=== PATIENT | male | born 1965 | race Caucasian/White ===

== ENCOUNTER 2024-04-16 09:04 | Emergency (ER) | payer OTHER, SELFPAY ==
[2024-04-16] VITALS (7 sets, daily range): BP systolic 156–187; BP diastolic 101–112; PULSE 72–96; RESP 16; TEMP 36.6; O2SAT 97–99; BMI 25.7
--- NOTE | 2024-04-16 09:15 | ED.CHESTPAIN ---
HPI - Chest Pain General Time Seen by Provider: 09:16 Date Seen: 04/16/24 Chief Complaint: Chest Pain Stated Complaint: Chest pain Time Seen by Provider: 04/16/24 09:15 Source: patient and RN notes reviewed Mode of arrival: ambulatory Limitations: no limitations History of Present Illness HPI narrative: This 58-year-old male is presenting to the ER with chest pain and pain into his arms with numbness tingling sensation. He started around 8:00 a.m. with central chest pain, was severe for about 10 minutes, went away and then came back. He did try some Tums, did not changes symptoms. He really was not feeling any associated GI symptoms with this. He feels pain into his upper arms and his arms feel numb and tingly with this. He has a history of untreated hypertension. There is a question of arrhythmia or abnormality on his EKG for which he were Holter before. He is on no chronic medicines. His current pain is about a 3 to 4/10. It is central and substernal, does not radiate into his neck or back. No abdominal pain or GI symptoms. Has never been diagnosed with heart attack before. Reviewed with patient that his EKG obtained on arrival does show some concerning changes for heart attack. Will be talking to Cardiology. He goes to [facility], thus, will talk to [facility]. Patient has never been told that he should not take blood thinners or NSAIDs, no recent surgery. MD complaint: chest pain Prior episodes: No Onset: during rest Related Data Home Medications ?Medication ?Instructions ?Recorded ?Confirmed sildenafil 25 mg tablet PO DAILY PRN 04/16/24 Allergies Allergy/AdvReac Type Severity Reaction Status Date / Time No Known Drug Allergies Allergy Verified 04/16/24 09:09 Review of Systems Status of ROS Reports: 6 or more systems reviewed and unremarkable except as noted in History and below Exam Const Vital Signs, click to edit/add: Vital Signs - 24 hr 04/16/24 09:06 04/16/24 09:21 Temperature 97.8 F Pulse Rate [Pulse Oximeter] 72 Respiratory Rate 16 Blood Pressure [Right Upper Arm] 187/111 H Pulse Oximetry 99 97 Oxygen Delivery Method Room Air 58-year-old male is alert, interactive, no apparent distress. Sclera clear, conjugate gaze, able speak in complete sentences. Neck is supple, no adenopathy, no thyromegaly masses or nodules. Lungs are clear, good air entry, no wheeze or crackles. CV regular rate and rhythm, no murmur, normal S1-S2, no S3-S4. Abdomen is soft, nontender, nondistended, no organomegaly. 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 Skin is warm but feels a little moist. He has no lower extremity edema. Patient was ambulatory into the ED of his own accord. Documenting provider has reviewed patient's vital signs: yes Course Course ED Course: Patient is on appropriate cardiac monitoring, pulse oximetry. Nursing staff is securing IV sources. Will give this patient 325 mg aspirin, have nursing staff try sublingual nitroglycerin. Need to get full complement of labs and talk to Cardiology emergently. Reevaluation(s) Time of Reevaluation #1: 09:45 Reevaluation #1: Brilinta is being brought from pharmacy. The heparin has been started. They are getting his nitroglycerin drip started, current systolic blood pressure 1 70s. Have reviewed with nursing staff that per cardiology we should titrate the systolic blood pressure with nitro to 120-130. Patient's chest pain did go down a bit with the original sublingual nitroglycerin from a 3 to a 1. I have explained to him that he will be going to [facility], going to the cardiac catheterization lab. Time of Reevaluation #2: 10:00 Reevaluation #2: Patient having worsening chest pain. Nursing staff alerted me and went to see him. Repeated an EKG which shows increasing STEMI changes in the anterior leads. Still in sinus rhythm at 83 beats per minute. On the monitor he is throwing an occasional PVC. Nitroglycerin was at 10 mics, increase the drip to 15 and then 20 as blood pressure systolic was 173. Did order 4 mg IV morphine and 4 mg IV Zofran. Flight crew arrived at this time. Consultations Consultation #1: Have spoken with Cardiology from [facility] Dr. Aviles. I was able to text him the EKG image, he concurs that this is an anterior MN. We will proceed with loading dose of Brilinta 180 mg. ACS heparin. He would like nitroglycerin drip started to titrate to a systolic of 120-130. We have already initiated aspirin, patient did get sublingual nitroglycerin ordered but will update nursing staff. Will have staff work on transfer either via ground or air, will use whichever is going to be quicker. Patient is a level 1 cardiac patient, STEMI. Time: 09:22 Vital Signs Vital signs: Initial Vital Signs Temperature 97.8 F 04/16/24 09:06 Temperature Source Temporal Artery Scan 04/16/24 09:06 Pulse Rate 72 04/16/24 09:06 Respiratory Rate 16 04/16/24 09:06 Blood Pressure 187/111 H 04/16/24 09:06 Blood Pressure Mean 136 H 04/16/24 09:06 Blood Pressure Position Sitting 04/16/24 09:06 Pulse Oximetry 99 04/16/24 09:06 Oxygen Delivery Method Room Air 04/16/24 09:06 Vital Signs Temperature 97.8 F 04/16/24 09:06 Pulse Rate 72 04/16/24 09:06 Respiratory Rate 16 04/16/24 09:06 Blood Pressure 187/111 H 04/16/24 09:06 Pulse Oximetry 99 04/16/24 09:06 Oxygen Delivery Method Room Air 04/16/24 09:06 Temperature 97.8 F 04/16/24 09:06 Pulse Rate 72 04/16/24 09:06 Respiratory Rate 16 04/16/24 09:06 Blood Pressure 187/111 H 04/16/24 09:06 Pulse Oximetry 97 04/16/24 09:21 Oxygen Delivery Method Room Air 04/16/24 09:06 Medications Administered Medications: Generic Name Dose Route Start Last Admin Trade Name Freq PRN Reason Stop Dose Admin Heparin Sodium/Dextrose 25,000 unit in 500 mls @ 0 mls/hr 04/16/24 09:30 04/16/24 09:41 Heparin IV 1,000 unit/hr .Q0M YARITZA 20 mls/hr Administration Protocol Per Protocol Nitroglycerin/Dextrose 25,000 mcg in 250 mls @ 3 mls/hr 04/16/24 09:27 04/16/24 09:41 Nitroglycerin/Dextrose IVPB 5 mcg/min .TITRATE PRN 3 mls/hr Administration Protocol 5 MCG/MIN Discontinued Medications Generic Name Dose Route Start Last Admin Trade Name Freq PRN Reason Stop Dose Admin Aspirin 324 mg 04/16/24 09:21 04/16/24 09:24 Aspirin 81 Mg Tab.Chew PO 04/16/24 09:22 324 mg ONCE ONE Administration Heparin Sodium (Porcine) 4,000 unit 04/16/24 09:26 04/16/24 09:40 Heparin 5,000 Unit/0.5 Ml Inj IVP 04/16/24 09:27 4,000 unit ONCE ONE Administration Ticagrelor 180 mg 04/16/24 09:26 04/16/24 09:43 Ticagrelor 90 Mg Tablet PO 04/16/24 09:27 180 mg ONCE ONE Administration MDM - Chest Pain Lab Data Attestation: I reviewed the patient's lab results. Labs: Lab Results 04/16/24 04/16/24 Range/Units 09:19 09:20 WBC 9.80 (4.50-11.00) K/uL RBC 4.67 (4.30-5.90) m/uL Hgb 16.1 (13.5-17.5) gm/dL Hct 47.2 (37.0-53.0) % MCV 101 H (80-100) fL MCH 35 H (26-34) pg MCHC 34 (32-36) gm/dL RDW Coeff of Miriam 13.8 (11.5-15.5) % Plt Count 342 (140-440) K/uL Neut % (Auto) 62.6 (42.0-72.0) % Lymph % (Auto) 24.2 (20-44) % Kimball % (Auto) 10.2 (0.0-11.0) % Eos % (Auto) 2.3 (0.0-7.0) % Baso % (Auto) 0.4 (0.0-3.0) % Neut # (Auto) 6.13 (1.7-7.0) K/uL Lymph # (Auto) 2.37 (0.90-2.90) K/uL Kimball # (Auto) 1.00 H (0.00-0.90) K/UL Eos # (Auto) 0.23 (0.00-0.50) K/uL Baso # (Auto) 0.04 (0.00-0.30) K/uL Abs Immat Gran (auto) 0.03 (0.00-0.30) K/uL Imm/Tot Granulo (auto) 0.3 % Sodium 140 (135-149) mmol/L Potassium 3.8 (3.6-5.1) mmol/L Chloride 107 (96-114) mmol/L Carbon Dioxide 28 (20-32) mmol/L Anion Gap 5 L (7-15) mEq/L BUN 19 (7-30) mg/dL Creatinine 1.0 (0.5-1.5) mg/dL Estimated Creat Clear 92.48 Estimated GFR 87 ml/min Glucose 103 (60-115) mg/dL Calcium 9.8 (8.4-10.6) mg/dL Troponin I 0.24 H* (0.01-0.04) ng/mL POC Troponin I 0.22 H (0.01-0.04) ng/ml Imaging Data Chest x-ray: Attestation: I have reviewed the pertinent imaging results. Radiologist's impression: Patient: DARIANA LAMB Facility:?[facility] Patient ID:?[id number] Site Patient ID:?[id number]. Site :?[id number] Study:?XRay-Chest Portable 1 View-04/16/2024 9:48:46 AM Ordering Physician:?Aubree Perez Final Report: INDICATION: Chest pain. TECHNIQUE: Chest 1 portable view. COMPARISON: None. FINDINGS: No pneumothorax or pleural effusion. Lungs are clear. Cardiac and mediastinal contours are within normal limits. Upper abdomen and osseous structures as imaged show no acute abnormality. IMPRESSION: No evidence of acute cardiopulmonary disease. Dictated by Elan Phillips MD @ 04/16/2024 10:00:49 AM (Electronic Signature) ECG Data Attestation: I personally reviewed and interpreted this ECG as follows: (Sinus rhythm, [address] and T-wave changes concerning for STEMI in anterior distribution.) ECG interpretation date: 04/16/24 ECG interpretation time: 09:16 Critical Care Time Critical Care Time Critical Care Time: Yes Attestation: The patient required my highest level preparedness to intervene emergently and I personally spent this critical care time directly and personally managing the patient. This critical care time included: Obtaining a history; Examining the patient; Pulse oximetry; Ordering and reviewing of studies; Arranging urgent treatment with development of a management plan; Evaluation of patients response to treatment; Frequent reassessment discussions with other providers. This critical care time was performed to assess and manage the high probability of imminent life-threatening deterioration that could result in multiorgan failure. It was exclusive of separate billable procedures and treating other patients and teaching time. Total Critical Care Time in Minutes: 60 Discharge Plan Discharge Clinical Impression: ST elevation myocardial infarction (STEMI) Qualifiers: Involved coronary artery: unspecified coronary artery Qualified Code(s): I21.3 - ST elevation (STEMI) myocardial infarction of unspecified site Patient Disposition: [facility] Discharge Location: [facility]
--- NOTE | 2024-04-16 09:21 | CRLHL7_ITS ---
For Patients: As a result of the Century Cures Act, medical imaging exams and procedure reports are released immediately into your electronic medical record. You may view this report before your referring provider. If you have questions, please contact your health care provider. INDICATION: Chest pain. TECHNIQUE: Chest 1 portable view. COMPARISON: None. FINDINGS: No pneumothorax or pleural effusion. Lungs are clear. Cardiac and mediastinal contours are within normal limits. Upper abdomen and osseous structures as imaged show no acute abnormality. IMPRESSION: No evidence of acute cardiopulmonary disease. Dictated by Elan Phillips MD @ 04/16/2024 10:00:49 AM (Electronically Signed)
[2024-04-16] MEDS: ASPIRIN 81 MG TAB.CHEW 324 MG PO (09:24)
[2024-04-16] MEDS: NITROGLYCERIN 0.4 MG TAB.SUBL SUBLINGUAL (09:25)
[2024-04-16 09:28] LABS: Basophils Absolute Auto 0.04 K/uL (0.00-0.30); Basophils Percent Auto 0.4 % (0.0-3.0); Eosinophils Absolute Auto 0.23 K/uL (0.00-0.50); Eosinophils Percent Auto 2.3 % (0.0-7.0); Hematocrit 47.2 % (37.0-53.0); Hemoglobin* 16.1 gm/dL (13.5-17.5); Immature Granulocytes Abs Auto 0.03 K/uL (0.00-0.30); Immature Granulocytes Pct Auto 0.3 %; Lymphocytes Absolute Auto 2.37 K/uL (0.90-2.90); Lymphocytes Percent Auto 24.2 % (20-44); Mean Corpuscular HGB Conc 34 gm/dL (32-36); Mean Corpuscular Hemoglobin 35 pg (26-34); Mean Corpuscular Volume 101 fL (80-100); Monocytes Percent Auto 10.2 % (0.0-11.0); Neutrophils Absolute Auto 6.13 K/uL (1.7-7.0); Neutrophils Percent Auto 62.6 % (42.0-72.0); Platelet Count* 342 K/uL (140-440); RDW Coefficient of Variation % 13.8 % (11.5-15.5); Red Blood Count 4.67 m/uL (4.30-5.90)
[2024-04-16 09:39] LABS: Troponin, Point-of-Care* 0.22 ng/ml (0.01-0.04)
[2024-04-16] MEDS: HEPARIN 5,000 UNIT/0.5 ML INJ 4000 UNIT IVP (09:40)
[2024-04-16] MEDS: NITROGLYCERIN/DEXTROSE 25,000 MCG/250 ML BOTTLE 3 MCG IVPB (09:41)
[2024-04-16] MEDS: HEPARIN 25,000 UNIT/500 ML BAG 20 UNIT IV (09:41)
[2024-04-16] MEDS: TICAGRELOR 90 MG TABLET 180 MG PO (09:43)
[2024-04-16 09:45] LABS: Chloride* 107 mmol/L (96-114)
[2024-04-16 09:46] LABS: Potassium* 3.8 mmol/L (3.6-5.1); Sodium* 140 mmol/L (135-149)
[2024-04-16 09:48] LABS: Est. Creatinine Clearance* 92.48; Estimated Glomerular Filt Rate 87 ml/min
[2024-04-16 09:49] LABS: Anion Gap 5 mEq/L (7-15); Blood Urea Nitrogen* 19 mg/dL (7-30); Calcium* 9.8 mg/dL (8.4-10.6); Carbon Dioxide* 28 mmol/L (20-32); Glucose* 103 mg/dL (60-115)
[2024-04-16 09:57] LABS: Slide Review Reflex No
[2024-04-16] MEDS: MORPHINE 4 MG/ML INJ IVP (10:00)
[2024-04-16] MEDS: ONDANSETRON 2 MG/ML inj 4 MG IVP (10:00)
[2024-04-16 10:03] LABS: Troponin I* 0.24 ng/mL (0.01-0.04)
[2024-04-16 10:11] LABS: D Dimer Quantitative* < 0.27 ug/ml (0.00-0.50)
== END 2024-04-16 10:15 | disposition short-term general hospital (02) ==
PROVIDERS: Emergency Provider Family Medicine
DX: I21.3 ST elevation (STEMI) myocardial infarction of unspecified site (principal)
CPT/HCPCS: 36415; 71045; 80048; 84484; 85025; 85379; 93005; 94761; 96374; 96375; 99285; 99291; A9270; J1644; J2270; J2405